=== PATIENT | female | born 1955 | race African-American/Black ===

== ENCOUNTER 2023-11-25 10:54 | Inpatient (IN) | payer MEDICARE, MEDICAID ==
[~2023-11-25] VITALS: Ht 160 cm; Wt 67.4 kg
[2023-11-25 11:48] LABS: Basophils # (auto) 0 10 ^3/uL (0-0.2); Basophils % (auto) 0.4 % (0.0-2.0); Eosinophils # (auto) 0 10 ^3/uL (0-0.8); Eosinophils % (auto) 0.4 % (0.0-7.0); Hematocrit 39.5 % (36.0-46.0); Hemoglobin 13.2 g/dL (12.2-16.2); Lymphocytes # (auto) 1.7 10 ^3/uL (0.4-5.4); Lymphocytes % (auto) 22.9 % (10.0-50.0); Mean Corpuscular Hemoglobin 28.8 pg (28.0-32.0); Mean Corpuscular Hgb Conc. 33.3 g/dL (32.0-36.0); Mean Corpuscular Volume 86.7 fL (80.0-100.0); Monocytes # (auto) 0.8 10 ^3/uL (0-1.3); Monocytes % (auto) 10.1 % (0.0-12.0); Neutrophils # (auto) 4.9 10 ^3/uL (1.6-8.6); Neutrophils % (auto) 66.2 % (37.0-80.0); Platelet Count (auto) 338 10^3/uL (140-450); Red Blood Cells 4.56 10^6/uL (4.0-5.20); Red Cell Distribution Width 12.8 % (11.8-14.3); White Blood Cell 7.4 10^3/uL (4.4-10.8)
[2023-11-25 11:51] VITALS: O2SAT 96
[2023-11-25 12:30] LABS: Anion Gap 5 (5-15); Carbon Dioxide 29 mmol/L (20-30); Chloride 95 mmol/L (98-107); Potassium 3.8 mmol/L (3.5-5.1); Sodium 129 mmol/L (136-145)
[2023-11-25 12:31] LABS: Calcium 9.8 mg/dL (8.7-10.4)
[2023-11-25 12:36] LABS: BUN/Creatinine Ratio 11.5 (10.0-20.0); Blood Urea Nitrogen 6 mg/dL (9-23); Glucose 102 mg/dL (74-106)
[2023-11-25] MEDS: SODIUM CHLORIDE 0.9% 1,000 ML IV ONE (12:38)
[2023-11-25] MEDS: HYDROcodone-ACET 5/325MG TAB PO ONE (13:33)
[2023-11-25] MEDS ORDERED: ONDANSETRON HCL 4 MG/2 ML VIAL IV PRN (16:45)
[2023-11-25] MEDS ORDERED: MORPHINE SULFATE INJ 2 MG/ml SYRG IV PRN (16:45)
[2023-11-25] MEDS ORDERED: ACETAMINOPHEN 325 MG TAB PO PRN (16:45)
[2023-11-25] MEDS ORDERED: NITROGLYCERIN 0.4 MG SL TAB SL PRN (16:45)
[2023-11-25 20:39] VITALS: PULSE 84; RESP 20; O2SAT 0
[2023-11-25 21:00] VITALS: BP 115/65; PULSE 75; RESP 21; TEMP 98.3; O2SAT 98
[2023-11-25] MEDS: GABAPENTIN 300 MG CAP PO SCH (21:28)
[2023-11-25] MEDS: ATORVASTATIN 20 MG TAB PO SCH (21:29)
[2023-11-25] MEDS: HYDROcodone-ACET 5/325MG TAB PO PRN (21:33)
[2023-11-25] MEDS ORDERED: ATOR40TA52 PO (22:25)
[2023-11-25] MEDS ORDERED: DIVA1TAB38 PO (22:25)
[2023-11-25] MEDS ORDERED: GABA-1250 PO (22:25)
[2023-11-25] MEDS ORDERED: FAMO-12 PO (22:25)
[2023-11-25] MEDS ORDERED: MONT-8 PO (22:25)
[2023-11-25] MEDS ORDERED: AMLO1TAB22 PO (22:25)
[2023-11-25] MEDS ORDERED: HYDR-4072 PO (22:25)
[2023-11-25] MEDS ORDERED: DICL1GEL73 TOP (22:25)
[2023-11-25] MEDS ORDERED: OMEP1CAP70 PO (22:25)
[2023-11-25] MEDS ORDERED: BENZ100C97 PO (22:26)
[2023-11-26] VITALS (7 sets, daily range): BP systolic 100–129; BP diastolic 64–77; PULSE 67–95; RESP 17–20; TEMP 97.6–98.1; O2SAT 94–99
[2023-11-26 06:09] LABS: Chloride 105 mmol/L (98-107); Potassium 3.3 mmol/L (3.5-5.1); Sodium 137 mmol/L (136-145)
[2023-11-26 06:10] LABS: Anion Gap 4 (5-15); Calcium 9.1 mg/dL (8.7-10.4); Carbon Dioxide 28 mmol/L (20-30)
[2023-11-26 06:15] LABS: BUN/Creatinine Ratio 12.2 (10.0-20.0); Blood Urea Nitrogen 6 mg/dL (9-23); Glucose 83 mg/dL (74-106)
[2023-11-26] MEDS: ASPirin 81 mg TAB PO SCH (09:29)
[2023-11-26] MEDS: amLODIPine BESYLATE 5 MG TAB PO SCH (09:30)
[2023-11-26 18:51] LABS: Urine Bacteria None Seen /hpf (None Seen)
[2023-11-26 19:01] LABS: Urine Blood Negative /uL (Negative); Urine Clarity Clear (Clear); Urine Color Light-Yellow (Yellow); Urine Protein, UAD Negative (Negative); Urine Specific Gravity 1.009 (1.001-1.035); Urine Urobilinogen Normal (Negative); Urine WBC 1 /hpf (0 - 5)
[2023-11-26] MEDS: POTASSIUM CHL 20 Meq TABLET PO ONE (21:27)
[2023-11-27] VITALS (8 sets, daily range): BP systolic 107–144; BP diastolic 64–74; PULSE 62–88; RESP 16–20; TEMP 97.7–98.5; O2SAT 96–98
[2023-11-27 05:58] LABS: Hematocrit 36.5 % (36.0-46.0); Hemoglobin 12.1 g/dL (12.2-16.2); Mean Corpuscular Hemoglobin 29.4 pg (28.0-32.0); Mean Corpuscular Hgb Conc. 33.1 g/dL (32.0-36.0); Mean Corpuscular Volume 88.8 fL (80.0-100.0); Platelet Count (auto) 279 10^3/uL (140-450); Red Blood Cells 4.11 10^6/uL (4.0-5.20); Red Cell Distribution Width 13.2 % (11.8-14.3); White Blood Cell 5.8 10^3/uL (4.4-10.8)
[2023-11-27 06:13] LABS: Alanine Aminotransferase 18 U/L (7-40); Albumin 3.8 g/dL (3.2-4.8); Alkaline Phosphatase 46 U/L (46-116); Anion Gap 5 (5-15); Aspartate Aminotransferase 19 U/L (13-40); BUN/Creatinine Ratio 24.4 (10.0-20.0); Bilirubin, Total 0.5 mg/dL (0.2-1.0); Blood Urea Nitrogen 11 mg/dL (9-23); Carbon Dioxide 28 mmol/L (20-30); Chloride 106 mmol/L (98-107); Glucose 81 mg/dL (74-106); Potassium 4.9 mmol/L (3.5-5.1); Sodium 139 mmol/L (136-145)
[2023-11-27 06:53] LABS: Band Neutrophils % (manual) 0; Basophils % (manual) 0 (0.0-2.0); Blast Cells 0; Metamyelocytes % 0; Myelocytes % 0; Promyelocytes % 0; Reactive Lymphocytes 0
[2023-11-27 08:32] LABS: Eosinophils % (manual) 2 (0-7); Lymphocytes % (manual) 45 (10.0-50.0); Monocytes % (manual) 5 (0-12); Platelet Estimate Adequate
[2023-11-28 01:00] VITALS: BP 145/76; PULSE 71; RESP 20; TEMP 98.5; O2SAT 94
[2023-11-28 05:00] VITALS: BP 135/74; PULSE 69; RESP 20; TEMP 98.3; O2SAT 96
[2023-11-28 08:00] VITALS: PULSE 82
[2023-11-28 08:53] LABS: Basophils # (auto) 0.1 10 ^3/uL (0-0.2); Basophils % (auto) 1.2 % (0.0-2.0); Eosinophils # (auto) 0.2 10 ^3/uL (0-0.8); Eosinophils % (auto) 4.2 % (0.0-7.0); Hematocrit 37.3 % (36.0-46.0); Hemoglobin 12.4 g/dL (12.2-16.2); Lymphocytes # (auto) 2.3 10 ^3/uL (0.4-5.4); Lymphocytes % (auto) 46.3 % (10.0-50.0); Mean Corpuscular Hemoglobin 29.3 pg (28.0-32.0); Mean Corpuscular Hgb Conc. 33.2 g/dL (32.0-36.0); Mean Corpuscular Volume 88.2 fL (80.0-100.0); Monocytes # (auto) 0.5 10 ^3/uL (0-1.3); Monocytes % (auto) 9.9 % (0.0-12.0); Neutrophils # (auto) 1.9 10 ^3/uL (1.6-8.6); Neutrophils % (auto) 38.4 % (37.0-80.0); Nucleated Red Blood Cells % 0.1 %; Platelet Count (auto) 307 10^3/uL (140-450); Red Blood Cells 4.22 10^6/uL (4.0-5.20); Red Cell Distribution Width 13.1 % (11.8-14.3)
[2023-11-28 09:00] VITALS: BP 146/74; PULSE 66; RESP 17; TEMP 98; O2SAT 96
[2023-11-28 09:22] LABS: Alanine Aminotransferase 14 U/L (7-40); Alkaline Phosphatase 50 U/L (46-116); Anion Gap 1 (5-15); BUN/Creatinine Ratio 15.1 (10.0-20.0); Blood Urea Nitrogen 8 mg/dL (9-23); Calcium 9.7 mg/dL (8.7-10.4); Carbon Dioxide 35 mmol/L (20-30); Chloride 104 mmol/L (98-107); Glucose 110 mg/dL (74-106); Potassium 3.9 mmol/L (3.5-5.1); Sodium 140 mmol/L (136-145)
[2023-11-28 09:24] LABS: Albumin 3.9 g/dL (3.2-4.8); Aspartate Aminotransferase 16 U/L (13-40); Bilirubin, Total 0.5 mg/dL (0.2-1.0)
[2023-11-28 09:25] LABS: Total Protein 6.3 g/dL (5.7-8.2)
[2023-11-28 12:30] VITALS: BP 118/75; PULSE 82; RESP 16; TEMP 98; O2SAT 98
== END 2023-11-28 15:15 | disposition home or self-care (01) | DRG 124 ==
LOC: EDBD 10:54 → ER 10:54 → TELE 16:43 → TELE-WESTW 16:53
PROVIDERS: ADMIT Internal Medicine; ATTEND Internal Medicine
DX: S05.11XA Contusion of eyeball and orbital tissues, right eye, initial encounter (principal); I21.A1 Myocardial infarction type 2; E87.1 Hypo-osmolality and hyponatremia; S09.90XA Unspecified injury of head, initial encounter; I16.0 Hypertensive urgency; E78.5 Hyperlipidemia, unspecified; J45.909 Unspecified asthma, uncomplicated; J32.0 Chronic maxillary sinusitis; G40.909 Epilepsy, unspecified, not intractable, without status epilepticus; W06.XXXA Fall from bed, initial encounter; Z98.51 Tubal ligation status; Y93.89 Activity, other specified; Y92.89 Other specified places as the place of occurrence of the external cause; Y99.8 Other external cause status; Z80.1 Family history of malignant neoplasm of trachea, bronchus and lung; Z82.49 Family history of ischemic heart disease and other diseases of the circulatory system; Z87.820 Personal history of traumatic brain injury
CPT/HCPCS: 36415; 70450; 72125; 80048; 80053; 80164; 81001; 84484; 85007; 85025; 85027; 93005; 93306; 97163; G0378